=== PATIENT | female | born 1955 | race Caucasian/White ===

== ENCOUNTER 2017-03-31 17:21 | Emergency (ER) | END 2017-03-31 22:34 | disposition home or self-care (01) ==

== ENCOUNTER → 2017-10-16 | Outpatient (CLI) | END | disposition home or self-care (01) ==

== ENCOUNTER → 2018-01-19 | Outpatient (CLI) | END | disposition home or self-care (01) ==

== ENCOUNTER 2018-01-21 07:48 | Inpatient (IN) | END 2018-01-24 20:30 | DRG 470 ==

== ENCOUNTER → 2018-02-03 | Outpatient (CLI) | END | disposition home or self-care (01) ==

== ENCOUNTER → 2018-04-09 | Outpatient (CLI) | payer OTHER ==
[~2018-04-09] MED LIST: ATOR40TA68 PO; GABA300C16 PO; HYDR-3609 PO; LISI-471 PO; OMEP20CA16 PO; SERT50TA6 PO
--- NOTE | 2018-04-09 11:50 | PN ---
Date/Time of Note Date/Time of Note DATE: 04/09/18 TIME: 11:47 Outpatient Progress Note Chief Complaint 3-month postop HPI 62-year-old female presents today for 3-month postoperative appointment Status post left total knee replacement on 01/21/2018. Patient has been doing well in regards to the knee. She has had recent onset of left ankle pain with weightbearing. No specific fall or injury just soreness when she has been weightbearing for extended periods of time. Patient very pleased status post surgery as she feels that she is back to her normal function in regards to her left knee. Review of Systems Const: No Fever, no chills, no Fatigue, normal appetite, no diaphoresis. Resp: No SOB, no wheezing, no chest pain. CV: No chest pain, no palpitaions, no ZARCO. Physical Exam Blood pressure is 141/72, temperature is 98.4 degrees, pulse is 88, respiratory rate is 14, height is 4 foot 9 inches, weight is 154 pounds General Appearance: well-developed, well-nourished, in no acute distress. Left knee: Well-healed surgical scar to the left knee. About 5 degrees lacking full extension. Patient has flexion up to 130 degrees today. No pain with range of motion. Numbness to the lateral compartment of the knee. 5/5 strength on resistance. Left ankle/foot: No obvious abnormalities on inspection. Normal range of motion with dorsiflexion plantarflexion inversion and eversion. No tenderness to palpation. With weightbearing patient has pain more along the lateral side of the ankle joint. No foot pain. 2+ pedal pulses per Imaging: X-ray of the Left knee performed on 04/09/2018 showing all components appearing well aligned, attached and integrated to the bone. No signs of any lucency between metal and bone. Allergies Coded Allergies: No Known Allergy (Unverified , 01/21/18) Assessment/Plan Problems: (1) Status post total left knee replacement * Continue daily activities as tolerated. * Anti-inflammatories as needed for pain. * Will request referral to foot and ankle specialist. Unclear as to because of recent onset of left foot/ankle pain * Follow-up at 6 months postop. Medications Home Meds Active Scripts Hydrocodone/Acetaminophen (Hydrocodone-Acetamin 10-325 mg) 1 Each Tablet, 1 TAB PO Q4H PRN for PAIN LEVEL 7-10 for 7 Days, #30 TAB Prov:MERLYN ANNE MD 01/24/18 Reported Medications Omeprazole* (Omeprazole*) 20 Mg Capsule.dr, 20 MG PO DAILY, #30 CAP 01/21/18 Sertraline Hcl* (Sertraline Hcl*) 50 Mg Tablet, 50 MG PO DAILY, #30 TAB 01/21/18 Gabapentin* (Gabapentin*) 300 Mg Capsule, 300 MG PO BID, #60 CAP 01/21/18 Atorvastatin* (Atorvastatin*) 40 Mg Tablet, 40 MG PO QHS, #30 TAB 01/21/18 Lisinopril* (Lisinopril*) 20 Mg Tablet, 20 MG PO DAILY, #30 TAB 01/21/18 ALISSON CHAPPELL PA-C Apr 09, 2018 11:50
--- NOTE | 2018-04-09 15:35 | RADRPT ---
PROCEDURE: Left knee x-ray CLINICAL INDICATION: Knee pain TECHNIQUE: Weight bearing AP, lateral and sunrise views of the left knee were obtained. COMPARISON: [facility] 03/28/2014 FINDINGS: There is normal mineralization. No acute fracture or dislocation is seen. There is a left knee replacement in place. There is a small joint effusion. There is no significant soft tissue swelling. RPTAT: AA IMPRESSION: Left knee prosthesis in place. Small left knee joint effusion. .Seng Marley MD, Date Time Electronically viewed and signed by .Seng Marley MD, on 04/09/2018 15:35 .S/
== END | disposition home or self-care (01) ==
LOC: HKI 11:17
PROVIDERS: ATTEND Orthopaedic Surgery Adult Reconstructive Orthopaedic Surgery
DX: Z47.1 Aftercare following joint replacement surgery (principal); Z96.652 Presence of left artificial knee joint